=== PATIENT | female | born 1960 | race Caucasian/White ===

== ENCOUNTER 2016-11-09 12:43 | Inpatient (IN) | payer SELFPAY ==
[~2016-11-09] VITALS: Ht 167.6 cm; Wt 99.1 kg
[2016-11-09] MEDS ORDERED: ZITHROMAX250 MG PO (13:51)
[2016-11-09] MEDS ORDERED: OMNICEF300 MG PO (13:52)
[2016-11-09] MEDS ORDERED: IPRAT-ALBUT 0.5-3 ML INH (13:57)
[2016-11-09] MEDS ORDERED: PREDNISONE10 MG PO (13:58)
[2016-11-09] MEDS ORDERED: TESSALON PERLE100 M1 PO (13:59)
[2016-11-09] MEDS ORDERED: CYMBALTA60 MG PO (13:59)
[2016-11-09] MEDS ORDERED: WELLBUTRIN XL150 MG PO (13:59)
[2016-11-09] MEDS ORDERED: PRILOSEC20 MG PO (14:00)
[2016-11-09] MEDS ORDERED: AMBIEN5 MG PO (14:00)
[2016-11-09] MEDS ORDERED: PROAIR RESPICL90 MCG INH (14:01)
[2016-11-09] MEDS ORDERED: FLEXERIL10 MG PO (14:01)
[2016-11-09] MEDS ORDERED: LASIX20 MG PO (14:02)
[2016-11-09] MEDS ORDERED: MOBIC15 MG PO (14:02)
[2016-11-09] MEDS ORDERED: KLOR-CON M1010 MEQ PO (14:03)
[2016-11-09] MEDS ORDERED: SYMBICORT 160-4.6 GM INH (14:03)
[2016-11-09] MEDS ORDERED: CENTRUM WOMEN1 EACH PO (14:04)
[2016-11-09] MEDS ORDERED: XANAX0.5 MG PO (14:04)
[2016-11-14] MEDS ORDERED: HABITROL21 MG TOP (10:21)
[2016-11-14] MEDS ORDERED: MUCINEX1200 MG PO (10:23)
[2016-11-14] MEDS ORDERED: SINGULAIR10 MG PO (10:29)
== END 2016-11-14 11:15 | disposition short-term general hospital (02) | DRG 190 ==
LOC: IP 12:43
PROVIDERS: ADMIT Family Medicine
PROC: 3E0F7GC Introduction of Other Therapeutic Substance into Respiratory Tract, Via Natural or Artificial Opening (ICD-10-PCS; principal; 2016-11-09)
DX: J44.0 Chronic obstructive pulmonary disease with (acute) lower respiratory infection (principal); J18.9 Pneumonia, unspecified organism; J44.1 Chronic obstructive pulmonary disease with (acute) exacerbation; F32.9 Major depressive disorder, single episode, unspecified; K21.9 Gastro-esophageal reflux disease without esophagitis; E66.9 Obesity, unspecified; R60.0 Localized edema; F17.210 Nicotine dependence, cigarettes, uncomplicated; Z23 Encounter for immunization
CPT/HCPCS: A9150; J1650; J1956; J2543; J2930; Q9967